=== PATIENT | male | born 1960 | race Caucasian/White ===

== ENCOUNTER → 2022-01-18 | Outpatient (REF) | payer BC | LOC: M SFHCDERM 14:22 | PROVIDERS: ATTEND Nurse Practitioner Family | DX: C44.301 Unspecified malignant neoplasm of skin of nose (principal) ==

== ENCOUNTER → 2022-05-17 | Outpatient (CLI) | payer BC | LOC: M LABSMTC 09:42 | PROVIDERS: ATTEND Anesthesiology | DX: Z01.818 Encounter for other preprocedural examination (principal); Z11.52 Encounter for screening for COVID-19 ==

== ENCOUNTER 2022-05-21 09:18 | Day surgery (SDC) | payer BC ==
[~2022-05-21] VITALS: Ht 172.7 cm; Wt 79.4 kg
[~2022-05-21 09:18] MED LIST: NS 1,000 ML IV ONE
[2022-05-21] MEDS ORDERED: propofoL 200 MG/20 ML VIAL As Ordered ONE (11:24)
[2022-05-21] MEDS ORDERED: fentaNYL 100 MCG/2 ML INJECTION As Ordered ONE (11:24)
[2022-05-21] MEDS ORDERED: LIDOCAINE 2% 100MG/5ML SDV (FOR ANES.) As Ordered ONE (11:24)
[2022-05-21 12:00] VITALS: BP 143/82
== END 2022-05-21 12:02 | disposition home or self-care (01) ==
LOC: M OPP 09:18
PROVIDERS: ATTEND Surgery
DX: K60.3 Anal fistula (principal); K62.5 Hemorrhage of anus and rectum; B96.81 Helicobacter pylori [H. pylori] as the cause of diseases classified elsewhere; Z86.010 Personal history of colon polyps; Z80.0 Family history of malignant neoplasm of digestive organs; K29.70 Gastritis, unspecified, without bleeding; K31.89 Other diseases of stomach and duodenum; F17.200 Nicotine dependence, unspecified, uncomplicated; G47.30 Sleep apnea, unspecified; I10 Essential (primary) hypertension; M19.90 Unspecified osteoarthritis, unspecified site; Z85.828 Personal history of other malignant neoplasm of skin
CPT/HCPCS: 43239; 45378; 88305; J3010